=== PATIENT | male | born 1965 | race Caucasian/White ===

== ENCOUNTER 2016-08-17 07:57 | Day surgery (SDC) | payer OTHER ==
[~2016-08-17] VITALS: Ht 182.9 cm; Wt 79.0 kg
[~2016-08-17 07:57] MED LIST: ASPI-973 PO
[2016-08-17 08:16] VITALS: BP 114/70; PULSE 70; RESP 16; O2SAT 96
[2016-08-17] MEDS ORDERED: IBUP200C PO (08:16)
[2016-08-17] MEDS ORDERED: MAGN250T29 PO (08:16)
[2016-08-17] MEDS ORDERED: 0.9% Sodium Chloride 1,000 ML IV PRN (08:46)
[2016-08-17] MEDS ORDERED: fentaNYL-PF 50 mCg/mL 2 mL Inj IVPUSH PRN (08:50)
[2016-08-17] MEDS ORDERED: Sodium Chloride LOK Flush 10 mL Syringe IV PRN (08:50)
[2016-08-17 09:29] VITALS: BP 110/71; PULSE 62; RESP 15; O2SAT 96
[2016-08-17 09:39] VITALS: BP 102/62; PULSE 59; RESP 15; O2SAT 97
[2016-08-17 09:59] VITALS: BP 112/75; PULSE 68; RESP 15; O2SAT 96
--- NOTE | 2016-08-17 10:11 | ENDO ---
[address] [address] ENDOSCOPY PROCEDURE PATIENT: RIYA PARRA : 1965 MR#: [id number] ADMIT: 08/17/2016 JOB ID: [id number] DATE OF SERVICE: 08/17/2016 FIRST PROCEDURE PERFORMED: Esophagogastroduodenoscopy. INDICATION: The patient with a history of chronic hepatitis C. EGD is being performed today for variceal screening. ASA CLASSIFICATION: The patient's ASA classification is II. MALLAMPATI SCORE: Mallampati score is 2. MEDICATIONS: 1. Versed 7 mg. 2. Fentanyl 150 mcg. INSTRUMENT USED: [id number]. PROCEDURE DETAILS: After informed consent was obtained, the patient was brought into the GI suite, where he was placed on oxygen via nasal cannula and monitored with continuous pulse oximeter, telemetry, and blood pressure monitoring. A time-out was performed. Then, he was placed in the left lateral decubitus position, and medications were administered for sedation. A bite block was placed. A standard EGD scope was inserted through the bite block and advanced under direct visualization to the second portion of the duodenum without difficulty. FINDINGS: 1. Normal appearing duodenal bulb, first and second portions. 2. Normal appearing pylorus. 3. Normal appearing antrum and stomach. 4. Retroflexed views in the gastric body revealed normal appearing cardia and fundus. 5. The GE junction was at approximately 46 cm and was slightly irregular. Multiple biopsies were obtained. 6. The remainder of the esophagus appeared normal. 7. No esophageal or gastric varices were appreciated. IMPRESSION: 1. Slightly irregular gastroesophageal junction. 2. Otherwise normal exam. RECOMMENDATIONS: 1. Await biopsy results. 2. Proceed to colonoscopy. COMPLICATIONS: None. ESTIMATED BLOOD LOSS: Less than 5 mL. SECOND PROCEDURE PERFORMED: Colonoscopy. INDICATION: Colon cancer screening. ASA CLASSIFICATION, MALLAMPATI SCORE AND MEDICATIONS: Please see above for ASA classification, Mallampati score, and medications. INSTRUMENT USED: [id number]-H180AL. PREPARATION QUALITY: Good. PROCEDURE DETAILS: After completion of the EGD exam, a digital rectal exam with palpation of the prostate was performed which was unremarkable. The colonoscope was then inserted into the rectum and advanced under direct visualization to the cecum, which was identified by the presence of the ileocecal valve and appendiceal orifice. Once the cecum was reached, the colonoscope was withdrawn back into the rectum as the mucosa and lumen were examined. In the rectum, retroflexion was performed. Following retroflexion, remaining air in the rectum was suctioned, and procedure was completed. FINDINGS: Normal exam from rectum to cecum. IMPRESSION: Normal colonoscopy. RECOMMENDATIONS: Repeat colonoscopy in 10 years, sooner if symptoms should dictate. COMPLICATIONS: None. ESTIMATED BLOOD LOSS: Zero.
--- NOTE | 2016-08-18 11:25 | PATH ---
SURGICAL PATHOLOGY Attending Physician:Kavita Kim CASE STATUS: Signed Out PATIENT NAME: RIYA PARRA PID: [id number] : 1965 DATE COLLECTED:08/17/2016 19:51 SPECIMEN: Esophagus, Biopsy CLINICAL HISTORY: 1). GE JUNCTION BIOPSY FINAL DIAGNOSIS: 1.GASTROESOPHAGEAL JUNCTION BIOPSY: SQUAMOUS MUCOSA AND GASTRIC CARDIA-TYPE MUCOSA POSITIVE FOR SPECIALIZED METAPLASIA OF EDWARDS' S-TYPE ESOPHAGUS. NEGATIVE FOR DYSPLASIA AND MALIGNANCY. EOSINOPHILS ARE NOT INCREASED. ICD10 CODE K22.70 GROSS DESCRIPTION: The specimen is received in one formalin filled container labeled with the patient's name, sublabeled " GEJ " and consists of 2 tiny portions of tissue which aggregate to 0.3 x 0.2 x 0.2 CM. The specimen is entirely submitted in one cassette. 08/17/2016 [facility] MICRO DESCRIPTION: See diagnosis. ICD-9 CODES: CPT CODES: 1: 86788 Electronically Signed Out Talib Bustillos MD [facility] [address], [place] [address] Technical component performed at [facility], [address] [place] [address] Ave[address], [address]
== END 2016-08-17 23:59 | disposition home or self-care (01) ==
LOC: END 07:57
PROVIDERS: ATTEND Internal Medicine Gastroenterology
DX: Z12.11 Encounter for screening for malignant neoplasm of colon (principal); B18.2 Chronic viral hepatitis C; K22.70 Barrett's esophagus without dysplasia; D47.3 Essential (hemorrhagic) thrombocythemia; Z79.82 Long term (current) use of aspirin
CPT/HCPCS: 43239; 88305; 99153; G0105; G0500; J2250; J3010; J7030